=== PATIENT | male | born 1990 | race Caucasian/White ===

== ENCOUNTER 2017-06-17 10:46 | Emergency (ER) | payer MEDICAID, OTHER, SELFPAY ==
--- NOTE | 2017-06-17 12:00 | EDM.PDOC ---
ED HPI GENERAL MEDICAL PROBLEM - General Chief Complaint: Respiratory Problem Stated Complaint: ANURISUM Time Seen by Provider: 06/17/17 10:46 Source of Information: Reports: Patient History Limitations: Reports: No Limitations - History of Present Illness INITIAL COMMENTS - FREE TEXT/NARRATIVE: 27 y.o.w.m -smoker-with a histoy of PE, Dx'd 2015, came to the ed due acute onset of pain at his left upper and right upper chest. Similar symptoms he had last year when he was dx'd with a PE. Pt denied F/C N/V but has SOB with exertion. BP 146/91 Pulse 122 RR 24 Pulse ox 95% Onset: Sudden Onset Date: 06/16/17 Onset Time: 19:00 Duration: Hour(s):, Getting Worse Location: Reports: Chest Quality: Reports: Same as Previous Episode, Other Severity: Moderate Improves with: Reports: Rest Worsens with: Reports: Movement Context: Reports: Other Associated Symptoms: Reports: No Other Symptoms Chest Pain Score (Numeric/FACES): 8 - Related Data Allergies Allergy/AdvReac Type Severity Reaction Status Date / Time No Known Allergies Allergy Verified 11/09/15 11:06 Home Meds: Home Meds Apixaban [Eliquis] 10 mg PO BID #14 tablet 06/17/17 [Rx] Ciprofloxacin HCl [Cipro] 500 mg PO BID #20 tablet 06/17/17 [Rx] ED ROS GENERAL - Review of Systems Review Of Systems: See Below Constitutional: Reports: No Symptoms HEENT: Reports: No Symptoms Respiratory: Reports: No Symptoms Cardiovascular: Reports: Chest Pain Endocrine: Reports: No Symptoms GI/Abdominal: Reports: No Symptoms : Reports: No Symptoms Musculoskeletal: Reports: No Symptoms Skin: Reports: No Symptoms Neurological: Reports: No Symptoms Psychiatric: Reports: No Symptoms Hematologic/Lymphatic: Reports: No Symptoms Immunologic: Reports: No Symptoms ED EXAM, GENERAL - Physical Exam Exam: See Below Exam Limited By: No Limitations General Appearance: Alert, WD/WN, Mild Distress Eye Exam: Bilateral Eye: Normal Inspection Ears: Normal External Exam Ear Exam: Bilateral Ear: Auricle Normal Nose: Normal Inspection Throat/Mouth: Normal Inspection, Normal Lips Head: Atraumatic, Normocephalic Neck: Normal Inspection, Supple, Non-Tender Respiratory/Chest: No Respiratory Distress, Lungs Clear, Pleural Rub, Other ( tender c/w,, cp) Cardiovascular: Normal Peripheral Pulses, Tachycardia Peripheral Pulses: 1+: Femoral (L), Femoral (R) GI/Abdominal: Normal Bowel Sounds, Soft, Non-Tender, No Organomegaly (Male) Exam: Deferred Rectal (Males) Exam: Deferred Back Exam: Normal Inspection, Full Range of Motion Extremities: Normal Inspection, Normal Range of Motion, Non-Tender, No Pedal Edema Neurological: Alert, Oriented, CN II-XII Intact, Normal Cognition, Normal Gait Psychiatric: Normal Affect, Normal Mood Skin Exam: Warm, Dry, Normal Color, No Rash Lymphatic: No Adenopathy EKG INTERPRETATION EKG Date: 06/17/17 Time: 11:20 Rhythm: NSR Rate (Beats/Min): 121 [place]: Normal P-Wave: Present QRS: Normal ST-T: Normal QT: Normal Comparison: NA - No Prior EKG EKG Interpretation Comments: S1Q3T3 Course - Vital Signs Text/Narrative:: 27 y.o.w.m -smoker-with a histoy of PE, Dx'd 2015, came to the ed due acute onset of pain at his left upper and right upper chest. Similar symptoms he had last year when he was dx'd with a PE. Pt denied F/C N/V but has SOB with exertion. BP 146/91 Pulse 122 RR 24 Pulse ox 95% PE: WNWD W M NAD Bilt chest wall tenderness Imaging: Bilat peripheral PEs, official report is pending Labs: WBC 17.8 HGB 15.3 INR Na 136 K 3.6 GFR >60 DDimer >5000 ECG: Sinus tach with S1Q3T3 sign Impression: Bilat peripheral Pulmonary emboli Tx: Eliquis 10 mg po Reexam: ImprovedPlan: D/C with instructions Last Recorded V/S: Last Vital Signs Temp 37.4 C 06/17/17 13:00 Pulse 112 H 06/17/17 13:00 Resp 22 H 06/17/17 13:00 BP 145/92 H 06/17/17 13:00 Pulse Ox 97 06/17/17 13:00 - Orders/Labs/Meds Labs: Laboratory Tests 06/17/17 06/17/17 06/17/17 Range/Units 11:23 11:23 11:23 WBC 17.8 H (4.5-12.0) X10-3/uL RBC 4.94 (4.30-5.75) x10(6)uL Hgb 15.3 (11.5-15.5) g/dL Hct 44.3 (30.0-51.3) % MCV 89.8 (80-96) fL MCH 31.0 (27.7-33.6) pg MCHC 34.5 (32.2-35.4) g/dL RDW 12.3 (11.5-15.5) % Plt Count 196 (125-369) X10(3)uL MPV 8.1 (7.4-10.4) fL Neut % (Auto) 74.8 (46-82) % Lymph % (Auto) 13.3 (13-37) % [place] % (Auto) 10.2 (4-12) % Eos % (Auto) 1 (1.0-5.0) % Baso % (Auto) 0 (0-2) % Neut # (Auto) 13.3 H (1.6-8.3) # Lymph # (Auto) 2.4 (0.6-5.0) # [place] # (Auto) 1.8 H (0.0-1.3) # Eos # (Auto) 0.2 (0.0-0.8) # Baso # (Auto) 0.1 (0.0-0.2) # PT 11.1 (8.7-11.1) INR 1.10 (0.89-1.13) D-Dimer, Quantitative > 5000 H (100-400) ng/mL Sodium (135-145) mmol/L Potassium (3.5-5.3) mmol/L Chloride (100-110) mmol/L Carbon Dioxide (23-29) mmol/L BUN (5-20) mg/dL Creatinine (0.6-1.3) mg/dL Est Cr Clr Drug Dosing Estimated GFR (MDRD) (>60) BUN/Creatinine Ratio (9-20) Glucose (80-116) mg/dL Lactic Acid (0.5-2.2) mmol/L Calcium (8.6-10.2) mg/dL 06/17/17 06/17/17 Range/Units 11:23 13:00 WBC (4.5-12.0) X10-3/uL RBC (4.30-5.75) x10(6)uL Hgb (11.5-15.5) g/dL Hct (30.0-51.3) % MCV (80-96) fL MCH (27.7-33.6) pg MCHC (32.2-35.4) g/dL RDW (11.5-15.5) % Plt Count (125-369) X10(3)uL MPV (7.4-10.4) fL Neut % (Auto) (46-82) % Lymph % (Auto) (13-37) % [place] % (Auto) (4-12) % Eos % (Auto) (1.0-5.0) % Baso % (Auto) (0-2) % Neut # (Auto) (1.6-8.3) # Lymph # (Auto) (0.6-5.0) # [place] # (Auto) (0.0-1.3) # Eos # (Auto) (0.0-0.8) # Baso # (Auto) (0.0-0.2) # PT (8.7-11.1) INR (0.89-1.13) D-Dimer, Quantitative (100-400) ng/mL Sodium 134 L (135-145) mmol/L Potassium 3.6 (3.5-5.3) mmol/L Chloride 101 (100-110) mmol/L Carbon Dioxide 22 L (23-29) mmol/L BUN 15 (5-20) mg/dL Creatinine 0.9 (0.6-1.3) mg/dL Est Cr Clr Drug Dosing TNP Estimated GFR (MDRD) > 60 (>60) BUN/Creatinine Ratio 16.7 (9-20) Glucose 107 (80-116) mg/dL Lactic Acid 0.8 (0.5-2.2) mmol/L Calcium 9.5 (8.6-10.2) mg/dL Meds: Medications Discontinued Medications Generic Name Dose Route Start Last Admin Trade Name Freq PRN Reason Stop Dose Admin Apixaban 10 mg 06/17/17 13:15 06/17/17 13:13 Eliquis PO 06/17/17 13:16 10 mg ONETIME ONE Administration Iopamidol 100 ml 06/17/17 12:04 06/17/17 12:13 Isovue-370 (76%) IV 06/17/17 12:05 82 ml . DIRECTED ONE Administration Departure - Departure Time of Disposition: 12:52 Disposition: Home, Self-Care 01 Condition: Good Clinical Impression: Pulmonary air embolism Qualifiers: Encounter type: subsequent encounter Qualified Code(s): T79.0XXD - Air embolism (traumatic), subsequent encounter - Discharge Information Prescriptions: Apixaban [Eliquis] 10 mg PO BID #14 tablet Ciprofloxacin HCl [Cipro] 500 mg PO BID #20 tablet Instructions: Pulmonary Embolism, Community-Acquired Pneumonia, Adult Referrals: Betty Collazo NP [Primary Care Provider] - Forms: ED Department Discharge Additional Instructions: Please quit tobacco use, please take eliquis as recommended please take Cipro as recommended, please follow up with your PMD tomorrow June 18 1015 am, please come back if your symptoms get worse acutely.
[2017-06-17] MEDS ORDERED: Iopamidol 755 Mg/ML 100 ML Bottle IV ONE (12:04)
[2017-06-17] MEDS ORDERED: Enoxaparin 120 MG/0.8 ML Syringe SUBCUT STA (12:43)
[2017-06-17] MEDS ORDERED: Apixaban 2.5 MG Tab PO ONE (12:44)
[2017-06-17] MEDS ORDERED: Apixaban 5 MG Tab PO ONE ×2 (13:00→13:15)
--- NOTE | 2017-06-17 14:22 | CT ---
INDICATION: Short of breath, elevated D-dimer. Question PE. COMPUTERIZED TOMOGRAPHY ANGIOGRAPHY OF THE CHEST FOR PULMONARY ARTERIES: Spiral 1.25-mm axial sections were obtained through the chest with 82 mL Isovue- 370 at 3 mL per second, with sagittal and coronal reconstructions, 06/17/2017, and compared with 11/09/2015. Total Exam DLP = 960.37 mGy-cm. The opacification of the pulmonary arteries is less than ideal with opacification similar or perhaps even slightly less prominent than the aorta, as opposed to the previous study where a more ideal high concentration of contrast in the pulmonary arteries was obtained. In the left lower lobe posteriorly, there are two new areas of somewhat rounded infiltration which may be on the basis of pneumonia. The possibility of pulmonary infarcts would also be a consideration. Additionally, there is an area of infiltration in the left lower lobe posterolaterally, similar but slightly less prominent than on the right, which may represent pulmonary infarction also and/or pneumonia. The other infiltration in the superior segment of the right lower lobe from the right upper lobe posteriorly again may be on the basis of infarct and/or pneumonia. Pulmonary infarcts were present on the previous examination and infarcts are now seen more extensively in those areas in second and third, as well as fourth order pulmonary arteries. The most severe increase in prominence of these pulmonary emboli is noted extending into the left lower lobe from second order pulmonary artery - left lower lobe pulmonary artery. There are definitely areas of increased pulmonary embolus and/or new pulmonary emboli also seen on the right extending into the lower lobe. There appears to be a small pleural effusion on the right which was not present on the previous examination. The heart did not appear enlarged. The liver is rather low in density compatible with fatty infiltration, which appears new compared with the previous study of 2016. IMPRESSION: 1. Bilateral pulmonary emboli second, third, fourth pulmonary arteries mostly to the lower lobes, with areas of either infarct or pneumonia times 2 in the right lower lobe posterolaterally - near the costophrenic angle and posteriorly in the area of the superior segment of the right lower lobe and one in the left lower lobe at the costophrenic angle - posteriorly in the left lower lobe. 2. Fatty infiltration of the liver - new compared with 2016. Report was called to Dr. Connor at approximately 1235 hours, 06/17/2017. [facility]
== END 2017-06-17 13:11 | disposition home or self-care (01) ==
LOC: FB.ED 10:46
DX: T79 Certain early complications of trauma, not elsewhere classified (principal)
CPT/HCPCS: 36415; 71275; 80048; 83605; 85025; 85379; 85610; 87040; 93005; 99285; A9270; Q9967; 99284

== ENCOUNTER 2017-08-20 16:37 | Inpatient (IN) | payer MEDICAID ==
[2017-08-20] MEDS ORDERED: Iopamidol 755 Mg/ML 100 ML Bottle IV ONE (17:24)
--- NOTE | 2017-08-20 18:59 | EDM.PDOC ---
ED HPI GENERAL MEDICAL PROBLEM - General Chief Complaint: Respiratory Problem Time Seen by Provider: 08/20/17 18:12 Source of Information: Reports: Patient, Family History Limitations: Reports: No Limitations - History of Present Illness INITIAL COMMENTS - FREE TEXT/NARRATIVE: 27 y.o.w.m with H/O Factor V deficiency, on Coumadin 5 mg daily, was seen in the clinic today for SOB. INR was 1.8, CXR showed infiltrate of both lower lungs. Pt was not relable with his Coumadine intake. Dr. Romero recommended to admit the patient to the [facility]. Pt was stated he has SOB with minor physical activity, not at rest. Puls ox is 97 on RA, BP 144/92 RR 18 Temp 38.1 Onset: Today Onset Date: 08/20/17 Onset Time: 06:00 Duration: Hour(s):, Day(s): Location: Reports: Chest Quality: Reports: Same as Previous Episode Severity: Moderate Improves with: Reports: Rest Worsens with: Reports: Movement Context: Reports: Other (Factor V deficiency) Associated Symptoms: Reports: Shortness of Breath Left Upper Chest Pain Score (Numeric/FACES): 2 - Related Data Allergies Allergy/AdvReac Type Severity Reaction Status Date / Time No Known Allergies Allergy Verified 08/20/17 18:11 Home Meds: Home Meds Acetaminophen 500 mg PO BID PRN 08/20/17 [History] Warfarin Sodium [Warfarin Sodium] 5 mg PO SUTUWETHSA 08/20/17 [History] Warfarin [Coumadin] 2.5 mg PO MOFR 08/21/17 [History] Past Medical History Cardiovascular History: Reports: Blood Clots/VTE/DVT Respiratory History: Reports: PE Hematologic History: Reports: Anticoagulation Therapy - Infectious Disease History Infectious Disease History: Reports: Chicken Pox Social & Family History - Family History Family Medical History: Noncontributory - Tobacco Use Smoking Status *Q: Former Smoker Years of Tobacco use: 4 Packs/Tins Daily: 1 Used Tobacco, but Quit: Yes Month Tobacco Last Used: 05/2017 - Caffeine Use Caffeine Use: Reports: Coffee - Alcohol Use Days Per Week of Alcohol Use: 2 Number of Drinks Per Day: 10 Total Drinks Per Week: 20 - Recreational Drug Use Recreational Drug Use: No ED ROS GENERAL - Review of Systems Review Of Systems: See Below Constitutional: Reports: No Symptoms HEENT: Reports: No Symptoms Respiratory: Reports: Shortness of Breath Cardiovascular: Reports: No Symptoms Endocrine: Reports: No Symptoms GI/Abdominal: Reports: No Symptoms : Reports: No Symptoms Musculoskeletal: Reports: No Symptoms Skin: Reports: No Symptoms Neurological: Reports: No Symptoms Psychiatric: Reports: No Symptoms Hematologic/Lymphatic: Reports: No Symptoms Immunologic: Reports: No Symptoms ED EXAM, GENERAL - Physical Exam Exam: See Below Exam Limited By: No Limitations General Appearance: Alert, WD/WN, Mild Distress Eye Exam: Bilateral Eye: Normal Inspection Ears: Normal External Exam Ear Exam: Bilateral Ear: Auricle Normal Nose: Normal Inspection, Normal Mucosa Throat/Mouth: Normal Inspection, Normal Lips Head: Atraumatic, Normocephalic Neck: Normal Inspection, Supple, Non-Tender, Full Range of Motion Respiratory/Chest: Respiratory Distress, Decreased Breath Sounds, Wheezing Cardiovascular: Normal Peripheral Pulses, Regular Rate, Rhythm, No Edema, No JVD , No Murmur Peripheral Pulses: 1+: Radial (R) GI/Abdominal: Normal Bowel Sounds (Male) Exam: Deferred Rectal (Males) Exam: Deferred Back Exam: Normal Inspection, Full Range of Motion Extremities: Normal Inspection, Normal Range of Motion Neurological: Alert, Oriented, CN II-XII Intact, Normal Cognition Psychiatric: Normal Affect, Normal Mood Skin Exam: Warm, Dry, Intact, Normal Color, No Rash Lymphatic: No Adenopathy Course - Vital Signs Text/Narrative:: 27 y.o.w.m with H/O Factor V deficiency, on Coumadin 5 mg daily, was seen in the clinic today for SOB. INR was 1.8, CXR showed infiltrate of both lower lungs. Pt was not relable with his Coumadine intake. Dr. Romero recommended to admit the patient [facility]. Pt was stated he has SOB with minor physical activity, not at rest. Puls ox is 97 on RA, BP 144/92 RR 18 Temp 38.1 PE: WNWD WM NAD, Lungs: Crackles/wheezes bilat lower lungs Imaging: CT Chest: No PE. Pt has bilt lower lung infiltrates DDX Pneumonia, CA, Fibrosis etc as per Dr. Mar. Labs: CBC 10.8 Lactic acid 0.9 INR 1.8 (results form the Clinic) ABG pending. Impression: Dyspnea, bilat lower lobe infiltrates DDx Pneumonia, CA Fibrosis (?) . H/O Factor 5 deficiency Tx: Coumadin, Levofloxacin, Albuterol Reexam: Improved Plan: Admit to [facility]. MRI may be indicated. Last Recorded V/S: Last Vital Signs Temp 37.2 C 08/23/17 08:00 Pulse 88 08/23/17 08:30 Resp 16 08/23/17 08:00 BP 146/84 H 08/23/17 08:00 Pulse Ox 94 L 08/23/17 08:30 - Orders/Labs/Meds Orders: Active Orders 24 hr Category Date Time Status CULTURE SPUTUM + SMEAR [RM] Stat Lab 08/22/17 20:00 Received INR,PT,PROTHROMBIN TIME [COAG] DAILY Lab 08/24/17 06:00 Ordered INR,PT,PROTHROMBIN TIME [COAG] DAILY Lab 08/25/17 06:00 Ordered INR,PT,PROTHROMBIN TIME [COAG] DAILY Lab 08/26/17 06:00 Ordered INR,PT,PROTHROMBIN TIME [COAG] DAILY Lab 08/27/17 06:00 Ordered INR,PT,PROTHROMBIN TIME [COAG] DAILY Lab 08/28/17 06:00 Ordered Nicotine [Habitrol] Med 08/22/17 21:00 Active 21 mg TRDERM BEDTIME Medication Orders Acetaminophen (Tylenol Extra Strength) 500 mg PO BID PRN PRN Reason: Pain Albuterol/Ipratropium (Duoneb 3.0-0.5 Mg/3 Ml) 3 ml NEB Q6H ATTILA Last Admin: 08/23/17 08:14 Dose: 3 ml Admin: 08/23/17 03:56 Dose: 3 ml Admin: 08/22/17 21:14 Dose: 3 ml Admin: 08/22/17 14:19 Dose: 3 ml Admin: 08/22/17 08:42 Dose: 3 ml Admin: 08/22/17 02:53 Dose: 3 ml Admin: 08/21/17 21:16 Dose: 3 ml Admin: 08/21/17 14:40 Dose: 3 ml Levofloxacin/Dextrose 750 mg/ (Premix) 150 mls @ 100 mls/hr IV Q24H ATTILA Stop: 08/25/17 20:29 Last Admin: 08/22/17 19:45 Dose: 100 mls/hr Infusion: 08/21/17 20:15 Dose: 100 mls/hr Admin: 08/21/17 18:45 Dose: 100 mls/hr Nicotine (Habitrol) 21 mg TRDERM BEDTIME [facility] Last Admin: 08/22/17 20:59 Dose: Not Given Oxycodone HCl (Oxycodone) 5 mg PO Q4H [facility] Last Admin: 08/23/17 07:59 Dose: 5 mg Admin: 08/23/17 03:57 Dose: 5 mg Admin: 08/23/17 00:20 Dose: 5 mg Admin: 08/22/17 21:13 Dose: 5 mg Admin: 08/22/17 16:23 Dose: 5 mg Admin: 08/22/17 12:27 Dose: 5 mg Admin: 08/22/17 08:42 Dose: 5 mg Rivaroxaban (Xarelto) 20 mg PO WITHDINNER [facility] Last Admin: 08/22/17 18:52 Dose: 20 mg Admin: 08/21/17 18:45 Dose: 20 mg Sodium Chloride (Saline Flush) 10 ml FLUSH ASDIRECTED PRN PRN Reason: flush for saline lock Last Admin: 08/21/17 18:45 Dose: 10 ml Admin: 08/20/17 22:04 Dose: 10 ml Admin: 08/20/17 22:04 Dose: 10 ml Zolpidem Tartrate (Ambien) 5 mg PO BEDTIME PRN PRN Reason: Sleep Labs: Laboratory Tests 08/20/17 08/20/17 08/21/17 Range/Units 19:05 20:43 06:00 WBC (4.5-12.0) X10-3/uL RBC (4.30-5.75) x10(6)uL Hgb (11.5-15.5) g/dL Hct (30.0-51.3) % MCV (80-96) fL MCH (27.7-33.6) pg MCHC (32.2-35.4) g/dL RDW (11.5-15.5) % Plt Count (125-369) X10(3)uL MPV (7.4-10.4) fL Neut % (Auto) (46-82) % Lymph % (Auto) (13-37) % [place] % (Auto) (4-12) % Eos % (Auto) (1.0-5.0) % Baso % (Auto) (0-2) % Neut # (Auto) (1.6-8.3) # Lymph # (Auto) (0.6-5.0) # [place] # (Auto) (0.0-1.3) # Eos # (Auto) (0.0-0.8) # Baso # (Auto) (0.0-0.2) # PT (8.7-11.1) INR (0.89-1.13) ABG pH 7.47 H (7.35-7.45) ABG pCO2 32 L (35-45) mmHg ABG pO2 69 L (83-108) mmHg ABG HCO3 23 (22-26) mmol/L ABG O2 Saturation 95 L (96-97) % ABG Base Excess 0.8 (-2-2) Adin Test Passed O2 Delivery Device Room air Sodium (135-145) mmol/L Potassium (3.5-5.3) mmol/L Chloride (100-110) mmol/L Carbon Dioxide (21-32) mmol/L BUN (7-18) mg/dL Creatinine (0.70-1.30) mg/dL Est Cr Clr Drug Dosing mL/min Estimated GFR (MDRD) (>60) BUN/Creatinine Ratio (9-20) Glucose (80-116) mg/dL Lactic Acid 0.9 (0.4-2.2) mmol/L Calcium (8.6-10.2) mg/dL Total Bilirubin (0.1-1.3) mg/dL AST (5-25) IU/L ALT (12-36) U/L Alkaline Phosphatase (56-112) IU/L NT-Pro-B Natriuret Pep 12 (<=125) pg/mL Total Protein (6.0-8.0) g/dL Albumin (3.5-5.2) g/dL Globulin g/dL Albumin/Globulin Ratio 08/21/17 08/21/17 08/21/17 Range/Units 06:00 06:00 06:00 WBC 11.6 (4.5-12.0) X10-3/uL RBC 4.44 (4.30-5.75) x10(6)uL Hgb 13.3 (11.5-15.5) g/dL Hct 39.2 (30.0-51.3) % MCV 88.3 (80-96) fL MCH 30.0 (27.7-33.6) pg MCHC 33.9 (32.2-35.4) g/dL RDW 12.7 (11.5-15.5) % Plt Count 398 H (125-369) X10(3)uL MPV 7.8 (7.4-10.4) fL Neut % (Auto) 53.6 (46-82) % Lymph % (Auto) 23.4 (13-37) % [place] % (Auto) 8.6 (4-12) % Eos % (Auto) 13 H (1.0-5.0) % Baso % (Auto) 1 (0-2) % Neut # (Auto) 6.2 (1.6-8.3) # Lymph # (Auto) 2.7 (0.6-5.0) # [place] # (Auto) 1.0 (0.0-1.3) # Eos # (Auto) 1.5 H (0.0-0.8) # Baso # (Auto) 0.2 (0.0-0.2) # PT 18.8 H (8.7-11.1) INR 1.84 H (0.89-1.13) ABG pH (7.35-7.45) ABG pCO2 (35-45) mmHg ABG pO2 (83-108) mmHg ABG HCO3 (22-26) mmol/L ABG O2 Saturation (96-97) % ABG Base Excess (-2-2) Adin Test O2 Delivery Device Sodium 138 (135-145) mmol/L Potassium 4.2 (3.5-5.3) mmol/L Chloride 102 (100-110) mmol/L Carbon Dioxide 25 (21-32) mmol/L BUN 10 (7-18) mg/dL Creatinine 0.8 (0.70-1.30) mg/dL Est Cr Clr Drug Dosing 145.75 mL/min Estimated GFR (MDRD) > 60 (>60) BUN/Creatinine Ratio 12.5 (9-20) Glucose 97 (80-116) mg/dL Lactic Acid (0.4-2.2) mmol/L Calcium 9.1 (8.6-10.2) mg/dL Total Bilirubin (0.1-1.3) mg/dL AST (5-25) IU/L ALT (12-36) U/L Alkaline Phosphatase (56-112) IU/L NT-Pro-B Natriuret Pep (<=125) pg/mL Total Protein (6.0-8.0) g/dL Albumin (3.5-5.2) g/dL Globulin g/dL Albumin/Globulin Ratio 08/22/17 08/22/17 08/22/17 Range/Units 06:25 06:25 06:25 WBC 9.8 (4.5-12.0) X10-3/uL RBC 4.20 L (4.30-5.75) x10(6)uL Hgb 12.8 (11.5-15.5) g/dL Hct 37.2 (30.0-51.3) % MCV 88.7 (80-96) fL MCH 30.5 (27.7-33.6) pg MCHC 34.4 (32.2-35.4) g/dL RDW 12.8 (11.5-15.5) % Plt Count 324 (125-369) X10(3)uL MPV 7.6 (7.4-10.4) fL Neut % (Auto) 51.5 (46-82) % Lymph % (Auto) 26.1 (13-37) % [place] % (Auto) 8.7 (4-12) % Eos % (Auto) 13 H (1.0-5.0) % Baso % (Auto) 1 (0-2) % Neut # (Auto) 5.1 (1.6-8.3) # Lymph # (Auto) 2.5 (0.6-5.0) # [place] # (Auto) 0.8 (0.0-1.3) # Eos # (Auto) 1.3 H (0.0-0.8) # Baso # (Auto) 0.1 (0.0-0.2) # PT 26.8 H (8.7-11.1) INR 2.60 H (0.89-1.13) ABG pH (7.35-7.45) ABG pCO2 (35-45) mmHg ABG pO2 (83-108) mmHg ABG HCO3 (22-26) mmol/L ABG O2 Saturation (96-97) % ABG Base Excess (-2-2) Adin Test O2 Delivery Device Sodium 140 (135-145) mmol/L Potassium 4.0 (3.5-5.3) mmol/L Chloride 105 (100-110) mmol/L Carbon Dioxide 25 (21-32) mmol/L BUN 9 (7-18) mg/dL Creatinine 0.9 (0.70-1.30) mg/dL Est Cr Clr Drug Dosing 129.55 mL/min Estimated GFR (MDRD) > 60 (>60) BUN/Creatinine Ratio 10.0 (9-20) Glucose 113 (80-116) mg/dL Lactic Acid (0.4-2.2) mmol/L Calcium 8.9 (8.6-10.2) mg/dL Total Bilirubin 0.4 (0.1-1.3) mg/dL AST 31 H (5-25) IU/L ALT 65 H (12-36) U/L Alkaline Phosphatase 95 (56-112) IU/L NT-Pro-B Natriuret Pep (<=125) pg/mL Total Protein 8.0 (6.0-8.0) g/dL Albumin 2.9 L (3.5-5.2) g/dL Globulin 5.1 g/dL Albumin/Globulin Ratio 0.6 Meds: Medications Generic Name Dose Route Start Last Admin Trade Name Freq PRN Reason Stop Dose Admin Acetaminophen 500 mg 08/21/17 08:10 Tylenol Extra Strength PO BID PRN Pain Albuterol/Ipratropium 3 ml 08/21/17 15:00 08/23/17 08:14 Duoneb 3.0-0.5 Mg/3 Ml NEB 3 ml Q6H ATTILA Administration Levofloxacin/Dextrose 750 mg/ 150 mls @ 100 mls/hr 08/21/17 19:00 08/22/17 19 :45 Premix IV 08/25/17 20:29 100 mls/hr Q24H ATTILA Administration Nicotine 21 mg 08/22/17 21:00 08/22/17 20:59 Habitrol TRDERM Not Given BEDTIME ATTILA Oxycodone HCl 5 mg 08/22/17 08:30 08/23/17 07:59 Oxycodone PO 5 mg Q4H ATTILA Administration Rivaroxaban 20 mg 08/21/17 18:00 08/22/17 18:52 Xarelto PO 20 mg WITHDINNER ATTILA Administration Sodium Chloride 10 ml 08/20/17 20:12 08/21/17 18:45 Saline Flush FLUSH 10 ml ASDIRECTED PRN Administration flush for saline lock Zolpidem Tartrate 5 mg 08/21/17 08:25 Ambien PO BEDTIME PRN Sleep Discontinued Medications Generic Name Dose Route Start Last Admin Trade Name Freq PRN Reason Stop Dose Admin Hydrocodone Bitart/Acetaminophen 1 tab 08/21/17 10:30 08/22/17 06:56 [place] 325-5 Mg PO 1 tab Q4H ATTILA Administration Albuterol/Ipratropium 3 ml 08/20/17 19:08 Duoneb 3.0-0.5 Mg/3 Ml NEB Q6H PRN sob Albuterol/Ipratropium 3 ml 08/21/17 08:30 08/21/17 09:49 Duoneb 3.0-0.5 Mg/3 Ml NEB 3 ml Q6H ATTILA Administration Levofloxacin/Dextrose 750 mg/ 150 mls @ 100 mls/hr 08/20/17 19:08 08/20/17 19 :57 Premix IV 08/20/17 20:37 100 mls/hr ONETIME ONE Administration Iopamidol 100 ml 08/20/17 17:24 08/20/17 17:45 Isovue-370 (76%) IV 08/20/17 17:25 82 ml . DIRECTED ONE Administration Nicotine 21 mg 08/21/17 21:45 08/21/17 21:49 Habitrol TRDERM 21 mg DAILY ATTILA Administration Warfarin Sodium 5 mg 08/21/17 16:00 Coumadin PO DAILY@1600 ATTILA Warfarin Sodium 7.5 mg 08/20/17 20:07 08/20/17 21:13 Coumadin PO 08/20/17 20:08 7.5 mg ONETIME ONE Administration Departure - Departure Time of Disposition: 19:00 Disposition: Refer to Observation Condition: Fair Clinical Impression: Lung infiltrate - Discharge Information - My Orders Last 24 Hours: My Active Orders 08/22/17 21:00 Nicotine [Habitrol] 21 mg TRDERM BEDTIME - Assessment/Plan Last 24 Hours: My Active Orders 08/22/17 21:00 Nicotine [Habitrol] 21 mg TRDERM BEDTIME
[2017-08-20] MEDS ORDERED: Albuterol/Ipratropium 3.0-0.5 MG/3 ML Neb Soln NEB PRN (19:08)
[2017-08-20] MEDS ORDERED: Levofloxacin/Dextrose 5%-Water 750 MG in Premix Bag 1 BAG IV ONE (19:08)
[2017-08-20] MEDS ORDERED: Warfarin 2.5 MG Tab PO ONE (20:07)
[2017-08-20] MEDS: Sodium Chloride 0.9% 10 ML Syringe FLUSH PRN (22:04)
[2017-08-21] MEDS ORDERED: Acetaminophen 500 MG Tab PO PRN (08:10)
[2017-08-21] MEDS ORDERED: Zolpidem 5 MG Tab PO PRN (08:25)
[2017-08-21] MEDS ORDERED: Albuterol/Ipratropium 3.0-0.5 MG/3 ML Neb Soln NEB SCH (08:30)
[2017-08-21] MEDS ORDERED: Enoxaparin 120 MG/0.8 ML Syringe SUBCUT SCH (08:30)
--- NOTE | 2017-08-21 08:39 | CT ---
INDICATION: Shortness of breath, question PE. COMPUTERIZED TOMOGRAPHY ANGIOGRAPHY OF THE CHEST WITH CONTRAST: Spiral 1.25-mm axial sections were obtained through the chest with 82 mL Isovue-370 at 4 mL per second, with sagittal and coronal reconstructions. The timing of the images was less than ideal, with relatively poor opacification of the pulmonary arteries. A greater amount of opacification is noted in the aorta and pulmonary veins than in the pulmonary arteries. This limits detail somewhat. However, a definite pulmonary embolus is not identified. Total Exam DLP = 835.99 mGy-cm. There is, however, noted bibasilar pleuroparenchymal change compatible with pneumonia and pleuritis and possibly atelectasis. Comparison studies were not available at the time of dictation. IMPRESSION: 1. No evidence of pulmonary emboli identified. 2. Bibasilar pleuroparenchymal changes compatible with pneumonia and pleuritis. Some atelectatic change may be present. Report was called to Dr. Connor at 1848 hours, 08/20/2017. ANA
--- NOTE | 2017-08-21 08:56 | PCM.HP ---
H&P History of Present Illness - General Date of Service: 08/21/17 Admit Problem/Dx: Admission Diagnosis/Problem Admission Diagnosis/Problem Pneumonia - History of Present Illness Initial Comments - Free Text/Narative: 27-year-old male patient presenting to initially outpatient clinic for non- resolving shortness of breath and dyspnea with even minimal activities such as taking out the trash. Came in because he has had no improvement in his shortness of breath and pain on deep breathing since discharge from hospital roughly 6-8 weeks ago. Chest x-ray suggestive of bilateral lower lobe consolidation in a patient with known factor V Leiden and recent diagnosis of bilateral PE and DVT. Denied fevers or chills nausea vomiting headache neck pain difficulty chewing or swallowing, myalgias nasal congestion sinus pain or pressure. Did note increasing cough and some mucoid sputum production over the last few days. He is chronically anticoagulated with warfarin secondary to above with an INR yesterday subtherapeutic at 1.8 managed by Coumadin clinic at [place]. He is followed by hematology Dr. Mason M.D. His usual 5 mg dose was increased to 7.5 mg which he took yesterday. Looking back at his prior INRs through warfarin clinic there is difficulty keeping him at therapeutic level (2-3). There is been no increased swelling in the lower extremities no pain warmth or redness. He's had no hemoptysis. Denies palpitations anterior chest pain or pressure or back pain. He's had no epistaxis, hemoptysis, hematemesis, easy bruising, prolonged bleeding, melena, hematochezia, materia, confusion or falls. Denies any recent travel, has been in the hospital in the last 3 months for the above, influenza vaccination negative. Medical record indicates DVT/PE diagnosis in 2016. Has been on Elliquis and Xerelto in the past but was unable to continue due to lack of insurance and due to cost. Left Upper Chest Pain Score (Numeric/FACES): 2 - Related Data Allergies/Adverse Reactions: Allergies Allergy/AdvReac Type Severity Reaction Status Date / Time No Known Allergies Allergy Verified 08/20/17 18:11 Home Medications: Home Meds Acetaminophen 500 mg PO BID PRN 08/20/17 [History] Warfarin Sodium [Warfarin Sodium] 5 mg PO SUTUWETHSA 08/20/17 [History] Warfarin [Coumadin] 2.5 mg PO MOFR 08/21/17 [History] Past Medical History Cardiovascular History: Reports: Blood Clots/VTE/DVT Respiratory History: Reports: PE Neurological History: Reports: Concussion, Other (See Below) Other Neuro History: in 5th grade Hematologic History: Reports: Anticoagulation Therapy - Infectious Disease History Infectious Disease History: Reports: Chicken Pox - Past Surgical History Cardiovascular Surgical History: Reports: None Respiratory Surgical History: Reports: None Social & Family History - Family History Family Medical History: Noncontributory - Tobacco Use Smoking Status *Q: Former Smoker Years of Tobacco use: 4 Packs/Tins Daily: 1 Used Tobacco, but Quit: Yes Month Tobacco Last Used: 05/2017 Second Hand Smoke Exposure: No - Caffeine Use Caffeine Use: Reports: Coffee - Alcohol Use Days Per Week of Alcohol Use: 2 Number of Drinks Per Day: 10 Total Drinks Per Week: 20 - Recreational Drug Use Recreational Drug Use: No Drug Use in Last 12 Months: Yes Other Recreational Drug Type: very rarely, smoked marijuana at [place] - Living Situation & Occupation Living situation: Reports: Single, Alone H&P Review of Systems - Review of Systems: Review Of Systems: ROS reveals no pertinent complaints other than HPI. Exam - Exam Exam: See Below - Vital Signs Vital Signs: Last Vital Signs Temp 98.9 F 08/21/17 05:40 Pulse 80 08/21/17 05:40 Resp 20 08/21/17 05:40 BP 147/87 H 08/21/17 05:40 Pulse Ox 94 L 08/21/17 07:00 Weight: 119.323 kg - Exam General: Alert, Oriented, Cooperative, Mild Distress (Increased respiratory rate with short inspiratory phase andThree-phase. No pursed lip breathing or circumoral cyanosis) HEENT: Conjunctiva Clear, Mucosa Moist & [place] Neck: Supple, Trachea Midline. No: Lymphadenopathy, JVD, Thyromegaly Lungs: Decreased Breath Sounds (Bilateral lower lobes), Rales (Noted more mid chest bilaterally), Other (Incentive spirometry volume roughly 1350 at which point he has bilateral pleuritic chest pain above the diaphragm. Described as sharp). No: Rub, Wheezing Cardiovascular: Regular Rate, Regular Rhythm, Normal S1, Normal S2. No: Systolic Murmur GI/Abdominal Exam: Normal Bowel Sounds, Soft, Non-Tender, Other (Due to patient' s body habitus difficult to assess for any organomegaly) Back Exam: Normal Inspection, Full Range of Motion Extremities: Normal Inspection, Non-Tender, No Pedal Edema, Normal Capillary Refill. No: Rebecca's Sign, Redness Neurological: Cranial Nerves Intact, Strength Equal Bilateral, Normal Speech, Other (Equal chest wall expansion bilaterally) Psychiatric: Normal Affect, Normal Mood. No: Anxious - Patient Data Lab Results Last 24 hrs: Laboratory Results - last 24 hr 08/20/17 08/20/17 08/21/17 Range/Units 19:05 20:43 06:00 WBC (4.5-12.0) X10-3/uL RBC (4.30-5.75) x10(6)uL Hgb (11.5-15.5) g/dL Hct (30.0-51.3) % MCV (80-96) fL MCH (27.7-33.6) pg MCHC (32.2-35.4) g/dL RDW (11.5-15.5) % Plt Count (125-369) X10(3)uL MPV (7.4-10.4) fL Neut % (Auto) (46-82) % Lymph % (Auto) (13-37) % [place] % (Auto) (4-12) % Eos % (Auto) (1.0-5.0) % Baso % (Auto) (0-2) % Neut # (Auto) (1.6-8.3) # Lymph # (Auto) (0.6-5.0) # [place] # (Auto) (0.0-1.3) # Eos # (Auto) (0.0-0.8) # Baso # (Auto) (0.0-0.2) # PT (8.7-11.1) INR (0.89-1.13) ABG pH 7.47 H (7.35-7.45) ABG pCO2 32 L (35-45) mmHg ABG pO2 69 L (83-108) mmHg ABG HCO3 23 (22-26) mmol/L ABG O2 Saturation 95 L (96-97) % ABG Base Excess 0.8 (-2-2) Adin Test Passed O2 Delivery Device Room air Sodium (135-145) mmol/L Potassium (3.5-5.3) mmol/L Chloride (100-110) mmol/L Carbon Dioxide (21-32) mmol/L BUN (7-18) mg/dL Creatinine (0.70-1.30) mg/dL Est Cr Clr Drug Dosing mL/min Estimated GFR (MDRD) (>60) BUN/Creatinine Ratio (9-20) Glucose (80-116) mg/dL Lactic Acid 0.9 (0.4-2.2) mmol/L Calcium (8.6-10.2) mg/dL NT-Pro-B Natriuret Pep 12 (<=125) pg/mL 08/21/17 08/21/17 08/21/17 Range/Units 06:00 06:00 06:00 WBC 11.6 (4.5-12.0) X10-3/uL RBC 4.44 (4.30-5.75) x10(6)uL Hgb 13.3 (11.5-15.5) g/dL Hct 39.2 (30.0-51.3) % MCV 88.3 (80-96) fL MCH 30.0 (27.7-33.6) pg MCHC 33.9 (32.2-35.4) g/dL RDW 12.7 (11.5-15.5) % Plt Count 398 H (125-369) X10(3)uL MPV 7.8 (7.4-10.4) fL Neut % (Auto) 53.6 (46-82) % Lymph % (Auto) 23.4 (13-37) % [place] % (Auto) 8.6 (4-12) % Eos % (Auto) 13 H (1.0-5.0) % Baso % (Auto) 1 (0-2) % Neut # (Auto) 6.2 (1.6-8.3) # Lymph # (Auto) 2.7 (0.6-5.0) # [place] # (Auto) 1.0 (0.0-1.3) # Eos # (Auto) 1.5 H (0.0-0.8) # Baso # (Auto) 0.2 (0.0-0.2) # PT 18.8 H (8.7-11.1) INR 1.84 H (0.89-1.13) ABG pH (7.35-7.45) ABG pCO2 (35-45) mmHg ABG pO2 (83-108) mmHg ABG HCO3 (22-26) mmol/L ABG O2 Saturation (96-97) % ABG Base Excess (-2-2) Adin Test O2 Delivery Device Sodium 138 (135-145) mmol/L Potassium 4.2 (3.5-5.3) mmol/L Chloride 102 (100-110) mmol/L Carbon Dioxide 25 (21-32) mmol/L BUN 10 (7-18) mg/dL Creatinine 0.8 (0.70-1.30) mg/dL Est Cr Clr Drug Dosing 145.75 mL/min Estimated GFR (MDRD) > 60 (>60) BUN/Creatinine Ratio 12.5 (9-20) Glucose 97 (80-116) mg/dL Lactic Acid (0.4-2.2) mmol/L Calcium 9.1 (8.6-10.2) mg/dL NT-Pro-B Natriuret Pep (<=125) pg/mL Result Diagrams: 08/21/17 06:00 08/21/17 06:00 Manuel Results Last 24 hrs: Blood and sputum cultures pending Imaging Impressions Last 24 hrs: CT angiogram of the chest did not demonstrate pulmonary embolism however there was poor penetration to the pulmonary arteries at the bases, there was increase pleural parenchyma changes noted at the bases bilaterally suggestive of possible pneumonia. This is per radiographic findings and interpretation. *Q Meaningful Use (ADM) - VTE *Q VTE Criteria *Q: - Stroke *Q Stroke Criteria *Q: - AMI *Q AMI Criteria *Q: - Problem List (1) Hospital-acquired bacterial pneumonia SNOMED Code(s): 025438903 ICD Code: J15.9 - UNSPECIFIED BACTERIAL PNEUMONIA Status: Acute Current Visit: Yes Problem Details: Hospitalization within 3 months. 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 SNOMED Code(s): 822163125748878 ICD Code: I82.513 - CHRONIC EMBOLISM AND THROMBOSIS OF FEMORAL VEIN, BILATERAL Status: Chronic Current Visit: Yes Problem Details: Hx bilateral DVTs 2018 (5) Factor V deficiency, congenital SNOMED Code(s): 66240998 ICD Code: D68.2 - HEREDITARY DEFICIENCY OF OTHER CLOTTING FACTORS Status: Chronic Current Visit: Yes Problem List Initiated/Reviewed/Updated: Yes Orders Last 24hrs: Active Orders 24 hr Category Date Time Status Incentive Breathing [RT Incentive Spirometry] [RC] Care 08/21/17 08:33 Active Q2HWA Notify Provider Vital Signs [RC] ASDIRECTED Care 08/21/17 08:27 Active Pneumonia Education [RC] DAILY Care 08/21/17 08:25 Active RT Aerosol Therapy [RC] ASDIRECTED Care 08/20/17 19:09 Active VTE/DVT Education [RC] Click to Edit Care 08/21/17 08:19 Active Consult to Pharmacy [CONS] Routine Cons 08/21/17 08:38 Active Respiratory Care Assess and Treatment [CONS] Routine Cons 08/21/17 08:25 Active Chest 2V [CR] AM Exams 08/22/17 05:11 Ordered CBC WITH AUTO DIFF [HEME] AM Lab 08/22/17 05:11 Ordered COMPREHENSIVE METABOLIC PN,CMP [CHEM] AM Lab 08/22/17 05:11 Ordered CULTURE SPUTUM + SMEAR [RM] Stat Lab 08/21/17 08:25 Uncollected INR,PT,PROTHROMBIN TIME [COAG] DAILY Lab 08/22/17 06:00 Ordered INR,PT,PROTHROMBIN TIME [COAG] DAILY Lab 08/23/17 06:00 Ordered INR,PT,PROTHROMBIN TIME [COAG] DAILY Lab 08/24/17 06:00 Ordered INR,PT,PROTHROMBIN TIME [COAG] DAILY Lab 08/25/17 06:00 Ordered INR,PT,PROTHROMBIN TIME [COAG] DAILY Lab 08/26/17 06:00 Ordered INR,PT,PROTHROMBIN TIME [COAG] DAILY Lab 08/27/17 06:00 Ordered INR,PT,PROTHROMBIN TIME [COAG] DAILY Lab 08/28/17 06:00 Ordered Acetaminophen [Tylenol Extra Strength] Med 08/21/17 08:10 Active 500 mg PO BID PRN Albuterol/Ipratropium [DuoNeb 3.0-0.5 MG/3 ML] Med 08/21/17 08:30 Active 3 ml NEB Q6H Enoxaparin [Lovenox] Med 08/21/17 08:30 Active 120 mg SUBCUT Q12H Levofloxacin/Dextrose 5%-Water [Levaquin in D5W 750 MG/ Med 08/21/17 19:00 Active 150 ML] 750 mg Premix Bag 1 bag IV Q24H Sodium Chloride 0.9% [Saline Flush] Med 08/20/17 20:12 Active 10 ml FLUSH ASDIRECTED PRN Zolpidem [Ambien] Med 08/21/17 08:25 Active 5 mg PO BEDTIME PRN Code Status [Resuscitation Status] Stat Resus Stat 08/20/17 19:21 Ordered Medication Orders Acetaminophen (Tylenol Extra Strength) 500 mg PO BID PRN PRN Reason: Pain Albuterol/Ipratropium (Duoneb 3.0-0.5 Mg/3 Ml) 3 ml NEB Q6H [facility] Enoxaparin Sodium (Lovenox) 120 mg SUBCUT Q12H [facility] Stop: 08/23/17 08:31 Levofloxacin/Dextrose 750 mg/ (Premix) 150 mls @ 100 mls/hr IV Q24H [facility] Stop: 08/25/17 20:29 Sodium Chloride (Saline Flush) 10 ml FLUSH ASDIRECTED PRN PRN Reason: flush for saline lock Last Admin: 08/20/17 22:04 Dose: 10 ml Admin: 08/20/17 22:04 Dose: 10 ml Warfarin Sodium (Coumadin) 5 mg PO DAILY@1600 ATTILA Zolpidem Tartrate (Ambien) 5 mg PO BEDTIME PRN PRN Reason: Sleep Assessment/Plan Comment:: Complicated patient clinically not suggestive of pneumonia with normal white count and differential, normal vitals, negative lactic acid and otherwise normal labs regarding chemistries and ABGs. CT suggestive of bilateral lower lobe pneumonia no effusions. As he has been in the hospital within the last 3 months and will be treated as hospital-acquired pneumonia. He will get Levaquin 750 mg IV every 24 hours. DuoNeb every 6 hours. Respiratory therapy to work with incentive spirometry every 2 hours while awake. I will add scheduled [place] due to pain on increase inspiration as he has shallow breathing due to this. Could be demonstrating post PT pleuritic chest pain. Will get a repeat chest x- ray with use of incentive spirometry to get better inspiratory view is prior was suboptimal. Also consider possible repeat CT angiogram or MRI as prior CT angiogram presented poor visualization of the pulmonary arteries per radiology. Consider changing his anticoagulant to a once daily dose Xerelto to prevent complicated dosing due to difficulty maintaining therapeutic INR and if patient at high risk for repeat DVT/PE in the setting of factor V Leiden deficiency. Will get a hold pharmacy and run this through his insurance which he now has, to determined whether or not this be economically feasible for him. Repeat CBC with differential, CMP and follow INRs. I will bridge him with Lovenox therapeutic in the meantime unless able to start Xerelto. Will get a walking desat study and have nurses ambulating him as tolerated. Pending the above anticipate discharge tomorrow.
[2017-08-21] MEDS: Acetaminophen/HYDROcodone 325-5 MG Tab PO SCH ×4 (11:56→22:45)
[2017-08-21] MEDS: Albuterol/Ipratropium 3.0-0.5 MG/3 ML Neb Soln NEB SCH ×2 (14:40→21:16)
[2017-08-21] MEDS ORDERED: Warfarin 5 MG Tab PO SCH (16:00)
[2017-08-21] MEDS: Sodium Chloride 0.9% 10 ML Syringe FLUSH PRN (18:45)
[2017-08-21] MEDS: Rivaroxaban 10 MG Tab PO SCH (18:45)
[2017-08-21] MEDS: Levofloxacin/Dextrose 5%-Water 750 MG in Premix Bag 1 BAG IV SCH (18:45)
[2017-08-21] MEDS ORDERED: Nicotine 21 MG/24 Hr Patch TRDERM SCH (21:45)
[2017-08-22] MEDS: Acetaminophen/HYDROcodone 325-5 MG Tab PO SCH ×2 (02:52→06:56)
[2017-08-22] MEDS: Albuterol/Ipratropium 3.0-0.5 MG/3 ML Neb Soln NEB SCH ×4 (02:53→21:14)
--- NOTE | 2017-08-22 08:39 | PCM.PN ---
- General Info Date of Service: 08/22/17 Subjective Update: 27-year-old male here for bilateral hospital-acquired pneumonia, possible recurrent PE, continued dyspnea at rest and exertion, and on chronic oral anticoagulation. He has been given RT with DuoNeb as well as pain medication which she does states helps with deeper inspiration. He continues to feel relatively the same with regards to his dyspnea. His sats are in the mid 90s on room air. His respiratory rate does appear less labored. He denies any chills or sudden sweats. He is tolerating his diet denies any resting chest pressure or pain only with deep inspiration along the diaphragm. No abdominal pain no dysphasia he has a dry cough. Denies any palpitations numbness or tingling in extremities swelling in the lower extremities back pain constipation or diarrhea. He is making good urine without dysuria decreased urination or hematuria. His mother is with him at the bedside today - Patient Data Vitals - Most Recent: Vital Signs (72 hours) 08/20/17 08/20/17 08/20/17 18:12 19:31 19:50 Temperature [ 100.6 F 100.4 F 98.3 F Oral] Pulse, 82 95 100 Peripheral [ Left Pulse Oximetry] Respiratory 18 14 20 Rate Blood Pressure 144/92 H 128/61 150/84 H [Left Upper Arm ] O2 Sat by Pulse 97 96 94 L Oximetry O2 Sat by Pulse Oximetry [Room Air] 08/20/17 08/20/17 08/20/17 20:00 21:00 23:00 Temperature [ Oral] Pulse, Peripheral [ Left Pulse Oximetry] Respiratory Rate Blood Pressure [Left Upper Arm ] O2 Sat by Pulse 94 L 95 94 L Oximetry O2 Sat by Pulse 94 L Oximetry [Room Air] 08/20/17 08/20/17 08/21/17 23:43 23:48 01:00 Temperature [ 99.2 F Oral] Pulse, 94 Peripheral [ Left Pulse Oximetry] Respiratory 20 Rate Blood Pressure 150/76 H [Left Upper Arm ] O2 Sat by Pulse 95 94 L 95 Oximetry O2 Sat by Pulse Oximetry [Room Air] 08/21/17 08/21/17 08/21/17 02:00 03:00 04:00 Temperature [ Oral] Pulse, Peripheral [ Left Pulse Oximetry] Respiratory Rate Blood Pressure [Left Upper Arm ] O2 Sat by Pulse 95 94 L 92 L Oximetry O2 Sat by Pulse Oximetry [Room Air] 08/21/17 08/21/17 08/21/17 05:00 05:40 06:00 Temperature [ 98.9 F Oral] Pulse, 80 Peripheral [ Left Pulse Oximetry] Respiratory 20 Rate Blood Pressure 147/87 H [Left Upper Arm ] O2 Sat by Pulse 94 L 94 L 94 L Oximetry O2 Sat by Pulse Oximetry [Room Air] 08/21/17 08/21/17 08/21/17 07:00 08:00 10:05 Temperature [ 98.2 F Oral] Pulse, 85 86 Peripheral [ Left Pulse Oximetry] Respiratory 19 Rate Blood Pressure 135/79 [Left Upper Arm ] O2 Sat by Pulse 94 L 93 L Oximetry O2 Sat by Pulse 95 Oximetry [Room Air] 08/21/17 08/21/17 08/21/17 12:00 14:54 16:00 Temperature [ 98.1 F 98.2 F Oral] Pulse, 82 88 87 Peripheral [ Left Pulse Oximetry] Respiratory 18 18 Rate Blood Pressure 135/88 143/70 H [Left Upper Arm ] O2 Sat by Pulse 95 95 Oximetry O2 Sat by Pulse 95 Oximetry [Room Air] 08/21/17 08/22/17 08/22/17 20:00 03:00 08:00 Temperature [ 98.3 F 99 F 97.9 F Oral] Pulse, 90 84 71 Peripheral [ Left Pulse Oximetry] Respiratory 18 20 18 Rate Blood Pressure 147/80 H 123/72 109/68 [Left Upper Arm ] O2 Sat by Pulse 94 L 96 96 Oximetry O2 Sat by Pulse Oximetry [Room Air] Weight - Most Recent: 119.323 kg I&O - Last 24 Hours: Intake & Output 08/20/17 08/21/17 08/22/17 06:59 06:59 06:59 Intake Total 150 383 Balance 150 383 Consultations 08/21/17 08:25 Respiratory Care Assess and Treatment [CONS] Routine Comment: Physician Instructions: 08/21/17 08:38 Consult to Pharmacy [CONS] Routine Comment: Physician Instructions: Quantity: Reason for Consult: Warfarin dosing for INR 2-3. Imaging Impressions - Last 24 Hours: Chest x-ray PA and lateral pending this morning Lab Results Last 24 Hours: Laboratory Results - last 24 hr 08/22/17 08/22/17 08/22/17 Range/Units 06:25 06:25 06:25 WBC 9.8 (4.5-12.0) X10-3/uL RBC 4.20 L (4.30-5.75) x10(6)uL Hgb 12.8 (11.5-15.5) g/dL Hct 37.2 (30.0-51.3) % MCV 88.7 (80-96) fL MCH 30.5 (27.7-33.6) pg MCHC 34.4 (32.2-35.4) g/dL RDW 12.8 (11.5-15.5) % Plt Count 324 (125-369) X10(3)uL MPV 7.6 (7.4-10.4) fL Neut % (Auto) 51.5 (46-82) % Lymph % (Auto) 26.1 (13-37) % [place] % (Auto) 8.7 (4-12) % Eos % (Auto) 13 H (1.0-5.0) % Baso % (Auto) 1 (0-2) % Neut # (Auto) 5.1 (1.6-8.3) # Lymph # (Auto) 2.5 (0.6-5.0) # [place] # (Auto) 0.8 (0.0-1.3) # Eos # (Auto) 1.3 H (0.0-0.8) # Baso # (Auto) 0.1 (0.0-0.2) # PT 26.8 H (8.7-11.1) INR 2.60 H (0.89-1.13) Sodium 140 (135-145) mmol/L Potassium 4.0 (3.5-5.3) mmol/L Chloride 105 (100-110) mmol/L Carbon Dioxide 25 (21-32) mmol/L BUN 9 (7-18) mg/dL Creatinine 0.9 (0.70-1.30) mg/dL Est Cr Clr Drug Dosing 129.55 mL/min Estimated GFR (MDRD) > 60 (>60) BUN/Creatinine Ratio 10.0 (9-20) Glucose 113 (80-116) mg/dL Calcium 8.9 (8.6-10.2) mg/dL Total Bilirubin 0.4 (0.1-1.3) mg/dL AST 31 H (5-25) IU/L ALT 65 H (12-36) U/L Alkaline Phosphatase 95 (56-112) IU/L Total Protein 8.0 (6.0-8.0) g/dL Albumin 2.9 L (3.5-5.2) g/dL Globulin 5.1 g/dL Albumin/Globulin Ratio 0.6 Manuel Results Last 24 Hours: Microbiology 08/20/17 19:10 Aerobic Blood Culture - Preliminary Blood - Venous - Lab Draw NO GROWTH AFTER 1 DAY Anaerobic Blood Culture - Preliminary NO GROWTH AFTER 1 DAY 08/20/17 19:05 Aerobic Blood Culture - Preliminary Blood - Venous NO GROWTH AFTER 1 DAY Anaerobic Blood Culture - Preliminary NO GROWTH AFTER 1 DAY Med Orders - Current: Current Medications Acetaminophen (Tylenol Extra Strength) 500 mg PO BID PRN PRN Reason: Pain Albuterol/Ipratropium (Duoneb 3.0-0.5 Mg/3 Ml) 3 ml NEB Q6H [facility] Last Admin: 08/22/17 02:53 Dose: 3 ml Levofloxacin/Dextrose 750 mg/ (Premix) 150 mls @ 100 mls/hr IV Q24H [facility] Stop: 08/25/17 20:29 Last Admin: 08/21/17 18:45 Dose: 100 mls/hr Nicotine (Habitrol) 21 mg TRDERM BEDTIME [facility] Oxycodone HCl (Oxycodone) 5 mg PO Q4H [facility] Rivaroxaban (Xarelto) 20 mg PO WITHDINNER [facility] Last Admin: 08/21/17 18:45 Dose: 20 mg Sodium Chloride (Saline Flush) 10 ml FLUSH ASDIRECTED PRN PRN Reason: flush for saline lock Last Admin: 08/21/17 18:45 Dose: 10 ml Zolpidem Tartrate (Ambien) 5 mg PO BEDTIME PRN PRN Reason: Sleep Discontinued Medications Hydrocodone Bitart/Acetaminophen ([place] 325-5 Mg) 1 tab PO Q4H [facility] Last Admin: 08/22/17 06:56 Dose: 1 tab Albuterol/Ipratropium (Duoneb 3.0-0.5 Mg/3 Ml) 3 ml NEB Q6H PRN PRN Reason: sob Albuterol/Ipratropium (Duoneb 3.0-0.5 Mg/3 Ml) 3 ml NEB Q6H [facility] Last Admin: 08/21/17 09:49 Dose: 3 ml Levofloxacin/Dextrose 750 mg/ (Premix) 150 mls @ 100 mls/hr IV ONETIME ONE Stop: 08/20/17 20:37 Last Admin: 08/20/17 19:57 Dose: 100 mls/hr Iopamidol (Isovue-370 (76%)) 100 ml IV . DIRECTED ONE Stop: 08/20/17 17:25 Last Admin: 08/20/17 17:45 Dose: 82 ml Nicotine (Habitrol) 21 mg TRDERM DAILY [facility] Last Admin: 08/21/17 21:49 Dose: 21 mg Warfarin Sodium (Coumadin) 5 mg PO DAILY@1600 ATTILA Warfarin Sodium (Coumadin) 7.5 mg PO ONETIME ONE Stop: 08/20/17 20:08 Last Admin: 08/20/17 21:13 Dose: 7.5 mg - Exam General: Alert, Oriented, Cooperative, No Acute Distress HEENT: Mucous Membr. Moist/[place] Neck: Supple, No JVD Lungs: Decreased Breath Sounds (Diminished breath sounds at the bases crackles at the mid kaplan inspiratory. Short inspiratory phase normal expiratory phase. Demonstrates he is able to get IS volume up to 1700 for me) Cardiovascular: Regular Rate, Regular Rhythm GI/Abdominal Exam: Normal Bowel Sounds, Soft, Non-Tender Back Exam: Normal Inspection, Full Range of Motion. No: CVA Tenderness (R), CVA Tenderness (L) Extremities: Normal Capillary Refill. No: No Pedal Edema, Rebecca's Sign, Increased Warmth Skin: Warm, Moist Psy/Mental Status: Normal Affect, Normal Mood - Problem List & Annotations (1) Hospital-acquired bacterial pneumonia SNOMED Code(s): 189469135 Code(s): J15.9 - UNSPECIFIED BACTERIAL PNEUMONIA Status: Acute Current Visit: Yes Annotation/Comment:: Hospitalization within 3 months. 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 SNOMED Code(s): 671587490558690 Code(s): I82.513 - CHRONIC EMBOLISM AND THROMBOSIS OF FEMORAL VEIN, BILATERAL Status: Chronic Current Visit: Yes Annotation/Comment:: Hx bilateral DVTs 2015- (5) Factor V deficiency, congenital SNOMED Code(s): 23914835 Code(s): D68.2 - HEREDITARY DEFICIENCY OF OTHER CLOTTING FACTORS Status: Chronic Current Visit: Yes - Problem List Review Problem List Initiated/Reviewed/Updated: Yes - My Orders Last 24 Hours: My Active Orders 08/21/17 08:10 Acetaminophen [Tylenol Extra Strength] 500 mg PO BID PRN 08/21/17 08:19 VTE/DVT Education [RC] Click to Edit 08/21/17 08:25 Pneumonia Education [RC] DAILY Respiratory Care Assess and Treatment [CONS] Routine CULTURE SPUTUM + SMEAR [RM] Stat Zolpidem [Ambien] 5 mg PO BEDTIME PRN 08/21/17 08:27 Notify Provider Vital Signs [RC] ASDIRECTED 08/21/17 08:33 Incentive Breathing [RT Incentive Spirometry] [RC] Q2HWA 08/21/17 08:38 Consult to Pharmacy [CONS] Routine 08/21/17 11:38 Ambulate [RC] Q4HWA 08/21/17 15:00 Albuterol/Ipratropium [DuoNeb 3.0-0.5 MG/3 ML] 3 ml NEB Q6H 08/21/17 18:00 Rivaroxaban [Xarelto] 20 mg PO WITHDINNER 08/21/17 19:00 Levofloxacin/Dextrose 5%-Water [Levaquin in D5W 750 MG/150 ML] 750 mg Premix Bag 1 bag IV Q24H 08/22/17 05:11 Chest 2V [CR] AM 08/22/17 08:30 oxyCODONE 5 mg PO Q4H 08/23/17 06:00 INR,PT,PROTHROMBIN TIME [COAG] DAILY 08/23/17 07:00 ABG [BLOOD GAS ARTERIAL] [BG] Routine - Assessment Assessment:: Please see above - Plan Plan:: Complicated patient condition. He has been running cyclical low-grade temps up to 99.2 F, however he has been getting [id number] hydrocodone with acetaminophen which could be masking higher temps. I'm going to switch this to plain oxycodone and stop his Tylenol in order to evaluate this. Respiratory therapy is locking 1500 up to 1750 incentive spirometry volumes volumes are than 1500 due cause pleuritic chest pain on deep inspiration and cough. This could either be on the basis of active pneumonia versus post PE pleuritic pain. Temporary scheduled pain control has helped with increased volumes. He did do a 6 minute walking study which he completed without significant difficulty with the sats remaining roughly 93-95% on room air respiratory rate still short inspiratory volume rates in the 20s. He remains on Levaquin IV 750 every 24 for hospital-acquired pneumonia bilateral suggested on CT. point to get repeat ABGs tomorrow plan on keeping him an additional day. DuoNeb every 6 hours. Respiratory therapy to work with incentive spirometry every 2 hours while awake. Also still consider possible repeat CT angiogram or MRI as prior CT angiogram presented poor visualization of the pulmonary arteries per radiology. I was able to switch his warfarin over to once daily dose Xerelto to prevent complicated dosing due to difficulty maintaining therapeutic INR inpatient at high risk for repeat DVT/PE in the setting of factor V Leiden deficiency. Our pharmacy was able to document that this would be covered by his insurance for 30 day supply with $3 co-pay. Patient was agreeable to this and it was started yesterday. INR is elevated to 2.6 from 1.8 as expected from increased dose warfarin and addition of antibiotic therapy so again we'll follow these levels tomorrow. Labs otherwise are unremarkable, has a normal white count differential does have elevated eosinophils so continue to research etiologies for this. His chemistries come back normal, his LFTs are slightly elevated but he does admit to beer intake and CT scan was suggestive of fatty liver discussed with film in detail when she understands he will need to cut down in order to prevent further damage. Also tobacco history for which she is now started on a nicotine transdermal 21 mg patch again extensive counseling was discussed regarding tobacco use and his current lung pathology and overall comorbidities associated with its use. I have not been able to get a sputum culture as of yet, blood culture 2 has remained negative 24 hours. He did not get Lovenox yesterday. Rest nursing to ambulate him in the brown or times daily. Pending the above anticipate discharge tomorrow.
[2017-08-22] MEDS: oxyCODONE 5 MG Tab PO SCH ×4 (08:42→21:13)
--- NOTE | 2017-08-22 16:05 | CR ---
INDICATION: Follow-up pneumonia. CHEST: Two PA views and a lateral view of the chest were obtained 08/22/2017, and were compared with 08/20/2017, revealing minimally better inspiration with no significant change or new acute process identified. Bilateral pleural effusions, somewhat larger on the right, are again suggested, with atelectasis and possibly some infiltrate in the lung bases and in the right upper lobe, suprahilar area on the right especially. The heart remains normal in size and shape. No evidence of CHF is seen. Bony structures appear to be intact. Somewhat flattened diaphragm leaves and prominent AP diameter raise question of obstructive airway disease. This should be correlated clinically. IMPRESSION: Continued bilateral pleuroparenchymal changes may be on the basis of pneumonia and pleuritis, although other etiology such as pulmonary embolus cannot be entirely excluded - a CT scan for angiography was obtained 08/20/2017 , but was less than ideal as to its opacification of the pulmonary arteries. Report was called to Dr. Blanca brantley (08/22/2017) ANA
[2017-08-22] MEDS: Rivaroxaban 10 MG Tab PO SCH (18:52)
[2017-08-22] MEDS: Levofloxacin/Dextrose 5%-Water 750 MG in Premix Bag 1 BAG IV SCH (19:45)
[2017-08-22] MEDS ORDERED: Nicotine 21 MG/24 Hr Patch TRDERM SCH (21:00)
[2017-08-23] MEDS: oxyCODONE 5 MG Tab PO SCH ×3 (00:20→07:59)
[2017-08-23] MEDS: Albuterol/Ipratropium 3.0-0.5 MG/3 ML Neb Soln NEB SCH ×2 (03:56→08:14)
--- NOTE | 2017-08-23 11:58 | PCM.DCSUM1 ---
Discharge Summary - Hospital Course HPI Initial Comments: 27-year-old male here for bilateral hospital-acquired pneumonia, possible recurrent PE, continued dyspnea at rest and exertion, and on chronic oral anticoagulation that was subtheraputic and difficult to control. - Discharge Data Discharge Date: 08/23/17 Discharge Disposition: Home, Self-Care 01 Condition: Good - Discharge Diagnosis/Problem(s) (1) Hospital-acquired bacterial pneumonia SNOMED Code(s): 624774143 ICD Code: J15.9 - UNSPECIFIED BACTERIAL PNEUMONIA Status: Acute Problem Details: Hospitalization within 3 months. 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 med review. Consider pulmonary consult for PFT Dr. Cuevas, hematology follow up. Hospital Course: He was started with RT for DuoNeb, IS, as well as pain medication helped with deeper inspiration. He feels improved over the last couple days with regards to his dyspnea. His sats are in the mid 90s on room air. His respiratory rate does not appear labored. He denied any chills or sudden sweats. He tolerating his diet denies any resting chest pressure or pain only with deep inspiration along the diaphragm. No abdominal pain no dysphasia he has a dry cough. Denies any palpitations numbness or tingling in extremities swelling in the lower extremities back pain constipation or diarrhea. He is making good urine without dysuria decreased urination or hematuria. His mother is with him at the bedside. CXR was improved somewhat, but remains the question of whether or not he has sustained permanent injury to the lower lobe on the left. was able to switch him over to xerlto and discontinue warfarin as cost was no longer a concern. His INR remained acceptible dispite abx. will continue with oral abx, d /c duonebs as not really helpful and have him follow up with pcp for further outpt management and cares. will provide short term opioid to improve IS volumes , and he agrees to abstain from etoh in light of his fatty liver. - Patient Instructions Diet: Regular Diet as Tolerated, No Alcoholic Beverages Activity: Cough & Deep Breathe Driving: May Drive Today Showering/Bathing: May Shower Notify Provider of: Fever, Increased Pain, Nausea and/or Vomiting Other/Special Instructions: Increased work of breathing, unusual bruising or bleeding, chest pain or pressure unexpected. - Discharge Plan Prescriptions/Med Rec: Levofloxacin 750 mg PO DAILY #5 tablet oxyCODONE 5 mg PO Q6H PRN #30 tablet PRN Reason: chest pain with inspiration. Rivaroxaban [Xarelto] 20 mg PO WITHDINNER #30 tablet Home Medications: Home Meds Levofloxacin 750 mg PO DAILY #5 tablet 08/23/17 [Rx] Rivaroxaban [Xarelto] 20 mg PO WITHDINNER #30 tablet 08/23/17 [Rx] oxyCODONE 5 mg PO Q6H PRN #30 tablet 08/23/17 [Rx] Patient Handouts: Rivaroxaban oral tablets, Oxycodone tablets or capsules, Smoking Cessation, Tips for Success, Levofloxacin tablets, Community-Acquired Pneumonia, Adult, Venous Thromboembolism Prevention Referrals: Sanju Romero MD [Primary Care Provider] - - Discharge Summary/Plan Comment DC Time >30 min.: Yes Discharge Summary/Plan Comment: see hospital course please. - Patient Data Vitals - Most Recent: Last Vital Signs Temp 98.9 F 08/23/17 08:00 Pulse 88 08/23/17 08:30 Resp 16 08/23/17 08:00 BP 146/84 H 08/23/17 08:00 Pulse Ox 94 L 08/23/17 08:30 Weight - Most Recent: 119.323 kg I&O - Last 24 hours: Intake & Output 01/04/18 01/05/18 01/05/18 22:59 06:59 14:59 Intake Total 150 Balance 150 Lab Results - Last 24 hrs: Laboratory Results - last 24 hr 08/23/17 08/23/17 Range/Units 06:30 08:00 PT 18.4 H (8.7-11.1) INR 1.80 H (0.89-1.13) ABG pH 7.39 (7.35-7.45) ABG pCO2 39 (35-45) mmHg ABG pO2 68 L (83-108) mmHg ABG HCO3 23 (22-26) mmol/L ABG O2 Saturation 93 L (96-97) % ABG Base Excess -1.0 (-2-2) Adin Test Passed O2 Delivery Device Room air FILIBERTO Results - Last 24 hrs: Microbiology 08/20/17 19:10 Blood - Venous - Lab Draw Aerobic Blood Culture - Final NO GROWTH 08/20/17 19:10 Blood - Venous - Lab Draw Anaerobic Blood Culture - Final NO GROWTH 08/20/17 19:05 Blood - Venous Aerobic Blood Culture - Final NO GROWTH 08/20/17 19:05 Blood - Venous Anaerobic Blood Culture - Final NO GROWTH 08/22/17 20:00 Sputum - Expectorated Gram Stain - Final 08/22/17 20:00 Sputum - Expectorated Sputum Culture - Final Normal Liliya Med Orders - Current: Current Medications Acetaminophen (Tylenol Extra Strength) 500 mg PO BID PRN PRN Reason: Pain Albuterol/Ipratropium (Duoneb 3.0-0.5 Mg/3 Ml) 3 ml NEB Q6H [facility] Last Admin: 08/23/17 08:14 Dose: 3 ml Levofloxacin/Dextrose 750 mg/ (Premix) 150 mls @ 100 mls/hr IV Q24H [facility] Stop: 08/25/17 20:29 Last Admin: 08/22/17 19:45 Dose: 100 mls/hr Nicotine (Habitrol) 21 mg TRDERM BEDTIME [facility] Last Admin: 08/22/17 20:59 Dose: Not Given Oxycodone HCl (Oxycodone) 5 mg PO Q4H [facility] Last Admin: 08/23/17 07:59 Dose: 5 mg Rivaroxaban (Xarelto) 20 mg PO WITHDINNER [facility] Last Admin: 08/22/17 18:52 Dose: 20 mg Sodium Chloride (Saline Flush) 10 ml FLUSH ASDIRECTED PRN PRN Reason: flush for saline lock Last Admin: 08/21/17 18:45 Dose: 10 ml Zolpidem Tartrate (Ambien) 5 mg PO BEDTIME PRN PRN Reason: Sleep Discontinued Medications Hydrocodone Bitart/Acetaminophen ([place] 325-5 Mg) 1 tab PO Q4H [facility] Last Admin: 08/22/17 06:56 Dose: 1 tab Albuterol/Ipratropium (Duoneb 3.0-0.5 Mg/3 Ml) 3 ml NEB Q6H PRN PRN Reason: sob Albuterol/Ipratropium (Duoneb 3.0-0.5 Mg/3 Ml) 3 ml NEB Q6H [facility] Last Admin: 08/21/17 09:49 Dose: 3 ml Levofloxacin/Dextrose 750 mg/ (Premix) 150 mls @ 100 mls/hr IV ONETIME ONE Stop: 08/20/17 20:37 Last Admin: 08/20/17 19:57 Dose: 100 mls/hr Iopamidol (Isovue-370 (76%)) 100 ml IV . DIRECTED ONE Stop: 08/20/17 17:25 Last Admin: 08/20/17 17:45 Dose: 82 ml Nicotine (Habitrol) 21 mg TRDERM DAILY [facility] Last Admin: 08/21/17 21:49 Dose: 21 mg Warfarin Sodium (Coumadin) 5 mg PO DAILY@1600 ATTILA Warfarin Sodium (Coumadin) 7.5 mg PO ONETIME ONE Stop: 08/20/17 20:08 Last Admin: 08/20/17 21:13 Dose: 7.5 mg - Exam Physical Findings Comments:: General: Alert, Oriented, Cooperative, No Acute Distress. has been ambulating in the brown and tells me this is much improved with regards to his prior dyspnea. HEENT: Mucous Membr. Moist/[place] Neck: Supple, No JVD Lungs: (Diminished breath sounds at the bases bilat, crackles at the mid kaplan have improved. lengthened inspiratory phase normal expiratory phase. Demonstrates he is able to get IS volume up to 1700 for me) Cardiovascular: Regular Rate, Regular Rhythm GI/Abdominal Exam: Normal Bowel Sounds, Soft, Non-Tender Back Exam: Normal Inspection, Full Range of Motion. No: CVA Tenderness (R), CVA Tenderness (L) Extremities: Normal Capillary Refill. No: No Pedal Edema, Rebecca's Sign, Increased Warmth *Q Meaningful Use (DIS) - VTE *Q VTE Criteria *Q: - Stroke *Q Stroke Criteria *Q: - AMI *Q AMI Criteria *Q:
== END 2017-08-23 11:30 | disposition home or self-care (01) | DRG 194 ==
LOC: FB.ED 16:37 → EDSTATUS 16:37 → FB.MS 19:04 → OBSVTOIN 08-22 09:25
PROVIDERS: ADMIT Family Medicine; ATTEND Family Medicine
DX: J18.9 Pneumonia, unspecified organism (principal); D68.2 Hereditary deficiency of other clotting factors; Z87.891 Personal history of nicotine dependence; Y95 Nosocomial condition; Z79.01 Long term (current) use of anticoagulants; Z86.711 Personal history of pulmonary embolism; R79.1 Abnormal coagulation profile; Z51.81 Encounter for therapeutic drug level monitoring; Z86.718 Personal history of other venous thrombosis and embolism; K76.0 Fatty (change of) liver, not elsewhere classified
CPT/HCPCS: 36415; 36600; 71046; 71275; 80048; 80053; 82803; 83605; 83880; 85025; 85610; 87040; 87070; 87205; 94150; 94640; 99285; A9270-GY; J1956; J7050; J7620; Q9967